=== PATIENT | female | born 1940 | race American Indian/Alaskan Native ===

== ENCOUNTER 2018-12-04 13:26 | Emergency (ER) | payer MEDICARE ==
[2018-12-04 14:03] LABS: Basophils # (Auto) 0.1 K/mm3 (0.0-0.1); Basophils % (Auto) 0.6 % (0.0-1.8); Eosinophils # (Auto) 0.2 K/mm3 (0.0-0.4); Eosinophils % (Auto) 2.5 % (0.0-4.3); Hematocrit 39.4 % (30.3-42.9); Hemoglobin 12.8 gm/dl (10.1-14.3); Lymphocytes % (Auto) 40.5 % (13.4-35.0); Mean Corpuscular HGB Conc 33 % (30-34); Mean Corpuscular Volume 87 fl (79-97); Monocytes # (Auto) 0.9 K/mm3 (0.0-0.8); Monocytes % (Auto) 9.7 % (0.0-7.3); Platelet Count 345 K/mm3 (140-440); Red Blood Count 4.55 M/mm3 (3.65-5.03); Red Cell Distribution Width 15.2 % (13.2-15.2)
[2018-12-04] MEDS ORDERED: ZIPRASIDONE MESYLATE 20 MG VIAL IM ONE (14:06)
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
[2018-12-04 14:49] LABS: BUN/Creatinine Ratio 14; Blood Urea Nitrogen 10 mg/dL (7-17); Calcium 9.2 mg/dL (8.4-10.2); Hemolysis Index 3
[2018-12-04 16:27] LABS: Bacteria,Urine 1+ /HPF (Negative); Bilirubin,Urine NEG (Negative); Blood,Urine SM (Negative); Color,Urine Yellow (Yellow); Mucus,Urine FEW /HPF; Protein,Urine <15 mg/dL mg/dL (Negative); Urobilinogen,Urine < 2.0 mg/dL (<2.0)
[2018-12-04 16:45] LABS: Amphetamine Screen,Urine PRESUMPTIVE NEGATIVE; Benzodiazepines Screen,Urine PRESUMPTIVE NEGATIVE; Cannabinoid Screen,Urine PRESUMPTIVE NEGATIVE; Cocaine Screen,Urine PRESUMPTIVE NEGATIVE; Methadone Screen,Urine PRESUMPTIVE NEGATIVE; Opiate Screen,Urine PRESUMPTIVE NEGATIVE
[2018-12-04] MEDS ORDERED: carvediloL 12.5 MG TAB PO SCH (23:08)
[2018-12-05] MEDS ORDERED: LEVOTHYROXINE 50 MCG TAB PO SCH (06:00)
--- NOTE | 2018-12-05 09:24 | Consultation ---
History of Present Illness - Reason for Consult Consult date: 12/05/18 Reason for consult: Mental Health Evaluatoop Requesting physician: ABIMAEL ERWIN - Chief Complaint Chief complaint: "They are trying to kill me" - History of Present Psychiatric Illness 78 y.o. AA female who presented to the ER for bizarre behavior per her family. Today the patient was preoccupied during the assessment. She is adamant that "someone or something" is going to kill her. she was observed slapping her head with both her hands throughout the interview. Her speech was pressured and she had to be redirected several times to keep her on topic. Most of her answers were not logical. She was able to state her her her current location when asked. She denies SI/HI's and VH's. She would not confirm or deny AH's. Overall, the patient is a poor historian. Medications and Allergies Allergies Allergy/AdvReac Type Severity Reaction Status Date / Time aspirin Allergy Unknown Verified 12/04/18 13:27 Penicillins Allergy Unknown Verified 12/04/18 13:27 Home Medications Medication Instructions Recorded Confirmed Last Taken Type AtorvaSTATin [Lipitor] 20 mg PO QHS 12/04/18 12/04/18 Unknown History Carvedilol [Coreg] 12.5 mg PO BID 12/04/18 12/04/18 Unknown History Levothyroxine [Synthroid] 50 mcg PO QAM 12/04/18 12/04/18 Unknown History Active Meds: Active Medications Atorvastatin Calcium (Lipitor) 20 mg PO QHS [facility] Carvedilol (Coreg) 12.5 mg PO BID [facility] Last Admin: 12/05/18 00:01 Dose: 12.5 mg Documented by: Levothyroxine Sodium (Synthroid) 50 mcg PO QAM@0600 [facility] Past psychiatric history - Past Medical History Past Medical History: other (Unabel to obtain ) Past Surgical History: Other (Unable to obtain ) - past Psychiatric treatment and history psychiatric treatment history: Unable to obtain a psy hx and fam psy hx. - Social History Social history: lives with family Mental Status Exam - Vital signs Last Vital Signs Temp 98.8 F 12/05/18 01:00 Pulse 104 H 12/05/18 01:00 Resp 18 12/05/18 01:00 BP 163/64 12/05/18 01:00 Pulse Ox 97 12/05/18 01:00 - Exam Narrative exam: MSE: Appearance: in hospital attired Behavior: regular eye contact Speech: pressured Mood: preoccupied Affect: congruent to mood Thought Process: tangential Thought Content: denies SI/HI's and VH's, paranoia Motor Activity: sitting up in the bed Cognition: A/O x 3 Insight: poor Judgment: poor Results Result Diagrams: 12/04/18 13:54 12/04/18 13:54 Abnormal lab results 12/04/18 12/04/18 12/04/18 Range/Units 13:54 13:54 13:54 Lymph % (Auto) (13.4-35.0) % [place] % (Auto) (0.0-7.3) % [place] # (0.0-0.8) K/mm3 Potassium 3.4 L (3.6-5.0) mmol/L Carbon Dioxide 21 L (22-30) mmol/L Glucose 128 H (65-100) mg/dL Salicylates < 0.3 L (2.8-20.0) mg/dL Acetaminophen < 5.0 L (10.0-30.0) ug/mL 12/04/18 Range/Units 13:54 Lymph % (Auto) 40.5 H (13.4-35.0) % [place] % (Auto) 9.7 H (0.0-7.3) % [place] # 0.9 H (0.0-0.8) K/mm3 Potassium (3.6-5.0) mmol/L Carbon Dioxide (22-30) mmol/L Glucose (65-100) mg/dL Salicylates (2.8-20.0) mg/dL Acetaminophen (10.0-30.0) ug/mL All other labs normal. Assessment and Plan Assessment and plan: Impression: Unspecified Psychosis. Today the patient was preoccupied during the assessment. UDS is negative. DDx: Schizophrenia, Bipolar DO with psychosis Recommendation/Plan: Continue 1013. Dispo: The patent was accepted at [facility] for inpatient psy services. Will staff with Dr He Baptiste.
[2018-12-05 09:47] VITALS: BP 135/63
== END 2018-12-05 10:51 ==
LOC: EEVIPCON 13:26 → ED 13:26
DX: F23 Brief psychotic disorder (principal); F31.9 Bipolar disorder, unspecified; I10 Essential (primary) hypertension; E03.9 Hypothyroidism, unspecified; M19.90 Unspecified osteoarthritis, unspecified site; E78.00 Pure hypercholesterolemia, unspecified; F17.200 Nicotine dependence, unspecified, uncomplicated; Z79.899 Other long term (current) drug therapy; Z88.0 Allergy status to penicillin; Z88.6 Allergy status to analgesic agent; Z90.49 Acquired absence of other specified parts of digestive tract; Z90.711 Acquired absence of uterus with remaining cervical stump
CPT/HCPCS: 36415; 80048; 80307; 81001; 84439; 84443; 85025; 96372; 99285; J3486; 80320; G0480